=== PATIENT | male | born 1945 | race African-American/Black ===

== ENCOUNTER 2019-08-25 20:34 | Inpatient (IN) ==
[2019-08-25 23:47] LABS: INR 1.86; PROTIME 21.8 Seconds (11.0-16.0)
[2019-08-25 23:48] LABS: PTT 40.5 Seconds (22.3-41.8)
[2019-08-26 00:11] LABS: CALCIUM 9.6 mg/dL (8.8-10.2); MAGNESIUM 2.7 mg/dL (1.5-2.7); PHOSPHORUS 6.2 mg/dL (2.7-4.5)
[2019-08-26] MEDS ORDERED: D50W SYRINGE IV ONE ×3 (00:12→11:17)
[2019-08-26 00:14] LABS: POTASSIUM 6.3 mmol/L (3.5-5.1)
[2019-08-26] MEDS ORDERED: KAYEXALATE PO ONE (00:29)
[2019-08-26] MEDS ORDERED: ALBUTEROL 0.5% INH CONC FOR HYPERKALEMIA INH ONE ×3 (00:29→13:43)
[2019-08-26] MEDS ORDERED: NS 1,000 ML IV SCH (00:45)
[2019-08-26 02:27] LABS: URINE SOURCE CLEAN CATCH
[2019-08-26 02:31] LABS: BLOOD URINE TRACE (NEGATIVE); COLOR YELLOW; GLUCOSE URINE NEGATIVE (NEGATIVE); KETONE URINE TRACE mg/dL (NEGATIVE); LEUKOCYTES URINE NEGATIVE (NEGATIVE); NITRITE URINE NEGATIVE (NEGATIVE); PH URINE 5.5; PROTEIN URINE 50 mg/dL (NEGATIVE); SP GRAVITY URINE 1.021; TURBIDITY URINE HAZY (CLEAR); UROBILINOGEN URINE NORMAL (NORMAL)
[2019-08-26 02:39] LABS: UR EPITHELIAL CELLS <10 /HPF (<10); URINE BACTERIA NEGATIVE /HPF; URINE RBC <10 /HPF (<10); URINE WBC <10 /HPF (<10)
[2019-08-26 02:42] LABS: URINE CASTS NONE SEEN; URINE CRYSTALS NONE SEEN; URINE SMALL ROUND CELLS NONE SEEN; URINE YEAST NONE SEEN
[2019-08-26 02:46] LABS: BILIRUBIN URINE LARGE (NEGATIVE)
--- NOTE | 2019-08-26 05:26 | EKG Report ---
Test Performed on : 08/26/2019 00:46:03 AM Test Reason : weakness,AMS Blood Pressure : / mmHG Vent. Rate : 123 BPM Atrial Rate : 123 BPM P-R Int : 120 ms QRS Dur : 080 ms QT Int : 318 ms P-R-T Axes : 045 043 036 degrees QTc Int : 455 ms Sinus tachycardia. Otherwise normal ECG No previous ECGs available Confirmed by Bernabe Au MD ([id number]) on 08/27/2019 7:29:40 AM
--- NOTE | 2019-08-26 06:01 | HISTORY AND PHYSICAL ---
ONCOLOGIST: Dr. Leann Martinez. DATE AND TIME: 08/25/2019 at 2245. CHIEF COMPLAINT: Abnormal labs and weakness. HISTORY OF PRESENT ILLNESS: Mr. Dailey is a 74-year-old -[place]une[place] male who has a history of hepatocellular carcinoma. He currently is undergoing chemotherapy, reportedly receiving Opdivo every 2 weeks with his last treatment being approximately 1-1/2 weeks ago. His next treatment was supposed to be this August 28. The patient also does have a history of cirrhosis, hepatitis C, diabetes, GERD, hypertension, hyperlipidemia, BPH, depression and anxiety. The patient's states that they did present to Dr. Martinez's office this morning for lab work, and based on his lab work they performed she states that they were told that he had worsening labs related to his liver and his kidneys. Due to his increased weakness, they were recommended by Dr. Martinez to go to the emergency department. The patient's states that they live in [place] and this is why they initially presented to [facility] since this was closer to their home, though since the patient is under the care of Dr. Martinez, he was transferred from [facility] to our hospital for further treatment and management. The patient at this time is alert and oriented to person, time and somewhat to place. He did know that he was in the hospital, though could not tell me what hospital. He could tell me that the person at his bedside was his though could not tell me her middle name. His states that normally he would be able to answer these things very quickly, though the patient did seem slow to answer questions. Other than this, he was not able to provide much information related to past medical history. He was able to tell me that he was not having any chest pain, shortness of breath or pain anywhere else. He denied any pain in his abdomen. He denied any vomiting, though did report that he had some nausea. He denied any diarrhea, hematochezia or melena. His last bowel movement was this morning on August 25. Though he did not report dysuria, he has reported that he has been having to strain when trying to urinate. His also states that his lower extremities from approximately mid calf down have had some swelling over the past day or so. His reports that normally he is not confused and he has not been having this previously. This is new. According to the ER notes at [facility], he was alert and oriented to person, place, and time there upon his arrival. The patient did receive, according to the [facility] ER medication administration, IV Dilaudid. His did mention that he did seem more confused after he was given this. She also reports that over the last day or so that she has noticed that he has had yellowing of his eyes and skin and that today she noticed that his abdomen was a little more swollen than his normal. According to [facility] ER records, his laboratory results revealed likely worsening liver function tests, though I do not have any previous to compare this to. His total bilirubin was 27.2, SGOT was 1281, SGPT was 110 and alkaline phosphatase was 281. Ammonia level was 58, BUN 46, creatinine 2.5 with a GFR of 32. Sodium was 134, potassium was 5.3. Calcium was 10.5, lipase was 16. White blood cell count was 7500, hemoglobin 14.2, hematocrit 40.4 with a platelet count of 643,000. He did receive a 1 L normal saline bolus, 1 mg of Dilaudid IV and 4 mg of Zofran IV. Upon further speaking with the patient's , she did reveal that previously the patient has had Do Not Resuscitate paperwork from what I understand, also they do not have a portable Do Not Resuscitate. The patient's at this time did not express to me that she wanted comfort measures or palliative care. She is wanting to continue with evaluation, treatment and management of his current present problems. She wants him to be a full code. She does want everything done at this time if his condition was to decline, which includes chest compressions, intubation, emergency cardiac medications and defibrillation. I did discuss with her that the patient's condition did seem to be declining. Unfortunately, I told her I did not have any previous laboratory results or diagnostic studies to compare his current results to, though based off what she had described to me, it did seem that he is having worsening liver function and now is having acute renal failure and confusion that is new. The patient's did discuss with her and they both together at this time do want him to remain a full code. They would like to speak with Dr. Martinez and let her evaluate the patient and see what her recommendations are. The patient was placed on the medical floor telemetry. Upon my evaluation, he was resting in the inpatient bed. He was in no acute distress. He was awake or alert, and would close his eyes and drift off to sleep at times, though was easily arousable with verbal and light tactile stimulation. He is alert and oriented to person and time though not place. He could tell me he was in the hospital, but could not tell me what hospital. He does have obvious jaundice noted to bilateral sclera. Upon assessment he did have crackles noted in the left lung base. Abdomen was slightly distended, though was soft and nontender. Bowel sounds are present in all 4 quadrants. The patient did have 1+ pitting edema noted in bilateral lower extremities from mid calf down. We did repeat a BMP and magnesium as well as we added on a PT, PTT, CK and troponin, which were not initially performed at [facility]. It did come back with the patient having a critical potassium level of 6.3. Though his glucose level was low at 41, we have performed a fingerstick blood sugar prior to his blood being drawn, which showed 84, though on the serum glucose, it was 41. Given these assessment and lab result findings, we have ordered a STAT EKG, chest x-ray, an amp of D50 IV, as well as a hyperkalemic albuterol nebulizer treatment, 30 g of Kayexalate p.o. We will start the patient with a gentle 1 L normal saline infusion at 80 mL/h. This will be x1 liter only. The nurse did perform a mini swallowing screen prior to administration of oral medications and the patient did pass this. We will also try to provide him with something to eat as well to help with his hypoglycemia. REVIEW OF SYSTEMS: Unfortunately, a complete review of systems was unable to be performed with the patient due to his current condition and mentation, though he was able to tell me that he was not experiencing any pain. He was reporting some nausea. He denied any chest pain, shortness of breath, abdominal pain, vomiting, or diarrhea. He denies any hematochezia or melena. He was reporting having to strain to urinate but denied any pain or burning with urination. He has been having some swelling in his lower extremities. His did report that his abdomen did seem a little more distended over the past day or so and he has had some worsening weakness and now new onset confusion. She denied him having any known cough, fever, body aches, or chills. PAST MEDICAL HISTORY: 1. Hepatocellular carcinoma. According to a history note from [facility], it was noted that the patient has received previous chemoembolization, left partial hepatectomy at [facility] and has most recently been receiving Opdivo every 2 weeks, with his last treatment being on August 14 and is followed [address]. Martinez. 2. Cirrhosis. 3. Hepatitis C. 4. Diabetes mellitus. 5. Gastroesophageal reflux disease. 6. Hypercholesterolemia. 7. Hypertension. 8. Benign prostatic hypertrophy. 9. Seasonal allergies. 10. Depression. 11. Anxiety. PAST SURGICAL HISTORY: 1. Liver surgery which I believe would be his previously mentioned left partial hepatectomy at [facility] in March 2018. 2. Left foot surgery secondary to an injury from a transcripter. SOCIAL HISTORY: The patient is a former smoker. He did quit smoking in 2012. There is no reported previous alcohol or illicit drug use. The patient does have a history of [employer] [place] exposure in [facility]. FAMILY HISTORY: Positive for his mother having history of thyroid disease and ovarian cancer. His father had a history of prostate cancer. ALLERGIES: Patient has no known allergies. HOME MEDICATIONS: The patient's reports that he is supposed to be taking the following medications which include: 1. Minocycline 100 mg capsule p.o. daily. She reports that he has taken this since his left foot surgery. 2. Loratadine 10 mg p.o. daily. 3. Pravastatin 40 mg p.o. daily. 4. Zofran ODT 4 mg tablet p.o. p.r.n. as needed for nausea. 5. MS Contin 15 mg tablet extended release, though the dosing interval is not noted. 6. [place] 10 mg tablet p.o. as needed, though the dosing interval is not noted as well. 7. Omeprazole 20 mg capsule p.o. daily. The patient's reports at this time that he has not been taking these medicines regularly, that he has only been recently taking his MS Contin and [place], though most recently he is not even taking these pain medications. He just receiving his chemotherapy. DIAGNOSTIC DATA: The following labs were obtained at [facility] which include white blood cell count is 7500, hemoglobin 14.2, hematocrit 40.4, platelet count is 643,000. SGOT was 1281, SGPT was 110, alkaline phosphatase is 281, total bilirubin is 27.2, albumin 3.5, ammonia level was 58, lipase 16. These labs were the most recent chemistry labs that were performed here at our facility, which included a sodium 137, potassium 6.3, chloride 100, serum bicarb is 16, anion gap is 21, BUN is 48, creatinine 3, GFR is 25, glucose was 41 though this has since been treated and has improved with the most recent fingerstick blood sugar being 90. Calcium 96, phosphorus 6.2, magnesium 2.7. CK 80, troponin T high sensitivity was 23. Plasma lactate 3.8. PT 21.8, INR 1.86, PTT is 40.5. Urinalysis was obtained via clean catch, was positive for protein, trace ketones, trace blood, large bilirubin and was negative for glucose, nitrites, leukocytes, white blood cells, or bacteria. I am awaiting EKG at this time. Chest x-ray was performed and did not show any acute abnormalities, though we are awaiting the radiologist over-read. PHYSICAL EXAMINATION: VITAL SIGNS: Temperature 98.3 degrees, heart rate 117, respirations 19, blood pressure 139/87 with a MAP of 100, oxygen saturation was 96% on room air. GENERAL: Mr. Dailey is a 74-year-old ill-appearing -[place] male. He was resting in the inpatient bed. He was in no acute distress. He was awake, was alert at times though would close his eyes and drift off to sleep, though was easily arousable with verbal and light tactile stimulation. HEENT: Head is atraumatic, normocephalic. Pupils are equal, round, reactive to light, were 3 mm bilaterally. There was jaundice noted to bilateral sclera. Oral mucosa was slightly dry. Oropharynx was clear though this was difficult to auscultate as the patient would not open his mouth all the way. NECK: Supple. Trachea midline. CARDIOVASCULAR: Patient has S1-S2 present. No murmurs, gallops, rubs appreciated with a tachycardic rate that is regular. PULMONARY: Patient has symmetrical chest expansion bilaterally. Lung sounds were clear in all drum[place] except he has some slight crackles noted in left lower lung base. ABDOMEN: Soft, nontender, though did seem slightly distended. Bowel sounds are present in all 4 quadrants and were normoactive. EXTREMITIES: No cyanosis noted, though the patient did have 1+ pitting edema noted in bilateral lower extremities from mid calf down. Radial pulses were 2+ bilaterally. Pedal pulses were 1+ bilaterally. INTEGUMENTARY: The patient's skin does appear to be jaundiced, though is dry and intact. NEUROLOGICAL: Patient is alert and oriented to person and time though not place. He could tell me he was in the hospital, but could not tell me which hospital. He was able to answer simple questions and follow simple commands. He was able to move all extremities though does have generalized weakness noted bilaterally and has weak hand grasps noted, though he denied any numbness or tingling. ASSESSMENT AND PLAN: 1. Hepatocellular carcinoma. 2. Cirrhosis. 3. History of hepatitis C. For numbers 1, 2, and 3, we will repeat the patient's liver function test and ammonia level in the morning. We will place the patient on continuous cardiac telemetry, q.4 hours vital signs and neurological checks and fingerstick blood sugars. We will monitor him closely throughout the night. We have placed a consult with Dr. Martinez, his oncologist, and will await her evaluation and further recommendations for treatment and management. 4. Acute kidney injury. This could be secondary to possible hepatorenal syndrome, though the patient does seem to be possibly slightly dehydrated as well. We will provide some very gentle intravenous hydration with normal saline at 80 mL/h x1 liter only. We have placed a consult with Dr. Alberts. We will await his evaluation and further recommendations for management and treatment. We have treated his hyperkalemia with nebulized albuterol and Kayexalate. We did not provide insulin at the time due to the patient being hypoglycemic. His glucose level was 41, though we have treated this and upon recheck it has improved. We will recheck potassium approximately 2 hours after this treatment is received. We will continue to monitor this closely. He is on continuous cardiac telemetry. 5. Encephalopathy. This could be multifactorial. This is likely related to hepatic encephalopathy, though the patient did receive Dilaudid at [facility] and his stated that prior to this he was oriented, though he seemed more disoriented after receiving this medicine. The patient has had some problems with hypoglycemia as well. We will recheck an ammonia level in the morning. We will do frequent fingerstick blood sugars. We will continue to monitor closely. He is receiving frequent neuro checks also. 6. Hypoglycemia. As previously mentioned, the patient did receive D50 IV. We are going to provide him with something to eat. He did pass a mini swallowing screen. We will continue to monitor this closely. 7. Resuscitation status. I did discuss with the patient's and at this time she does want him to remain a full code. She does want chest compressions, intubation, emergency cardiac medicines and defibrillation. She did state that she wanted to speak with Dr. Martinez in the morning before making any further decisions about this. An order for a full code resuscitation level has been placed in the computer. 8. Venous thromboembolism (VTE) prophylaxis will be provided with sequential compression devices. We are going to recheck a potassium level later on this morning to recheck improvement after he received treatment for his hyperkalemia. We will recheck a CBC, CMP, magnesium, phosphorus, CK profile, troponin, and a ammonia level later on this morning. We did obtain blood cultures as well. The patient does not have any leukocytosis. He has not had any fever, body aches, or chills and is not reporting any pain at this time. Further orders and recommendations pending hospital course, diagnostic studies, and physician evaluation. Dictated by SHANKAR Prieto for Taran Ying MD I have performed a face to face diagnostic evaluation. Labs/xrays- reviewed. Exam- Chest- clear, CV-regular, Abd- soft. A/P Hepatocelluar carcinoma, Cirrhosis- Admit, Oncology consult, supportive care. Poor prognosis. Dr. Ying cc: Taran Ying MD [facility]
[2019-08-26] MEDS ORDERED: PROTONIX 80 MG in NS 80 ML IV ONE (06:10)
[2019-08-26] MEDS ORDERED: PROTONIX 80 MG in NS 80 ML IV SCH (06:15)
[2019-08-26] MEDS ORDERED: ZOFRAN IV PRN (06:27)
[2019-08-26 07:02] LABS: HEMATOCRIT 37.5 % (42.0-52.0); HEMOGLOBIN 13.3 g/dL (14.0-18.0); MCH 28.8 PG (27-31); MCHC 35.5 g/dL (33-37); MCV 81.2 FL (81-99); PLT 601 X1000 (130-400); RBC 4.62 XMIL (4.7-6.1); WBC 12.85 X1000 (4.8-10.8)
[2019-08-26 07:03] LABS: BASO# 0.13 X1000 (0.0-0.2); EOS# 0.01 X1000 (0.0-0.7); EOS% 0.1 % (0.0-10.0); IMM GRAN# 0.11 X1000 (0.0-0.04); IMM GRAN% 0.9 % (0.0-0.5); LYMPH# 1.23 X1000 (1.2-3.4); LYMPH% 9.6 % (20.5-51.1); MONO# 2.22 X1000 (0.11-0.59); MONO% 17.3 % (1.7-9.3); MPV 10.5 FL (7.4-10.4); NEUT# 9.15 X1000 (1.4-6.5); NEUT% 71.1 % (42.2-75.2)
[2019-08-26 07:07] LABS: INR 2.13; PROTIME 24.3 Seconds (11.0-16.0)
--- NOTE | 2019-08-26 07:21 | Diag Imaging Result Doc PS360 ---
CHEST-PORTABLE - 08/25/2019 INDICATION: crackles LLL COMPARISON: None FINDINGS: The lungs are normally expanded and clear. Heart size and mediastinal contours are normal. No pneumothorax or pleural effusion. IMPRESSION: Negative exam. Electronically signed by Jayy Motta 08/26/2019 7:18 AM
[2019-08-26 07:35] LABS: ALB/GLOB RATIO 0.9; CALCIUM 10.2 mg/dL (8.8-10.2); CREATININE 3.5 mg/dL (0.7-1.2); TOTAL PROTEIN 6.4 g/dL (6.3-8.3)
[2019-08-26 07:36] LABS: POTASSIUM 5.7 mmol/L (3.5-5.1); TOTAL BILIRUBIN 27.59 mg/dL (0.20-1.00)
[2019-08-26] MEDS ORDERED: HUMULIN R IV ONE (09:09)
[2019-08-26] MEDS ORDERED: SODIUM BICARBONATE 8.4% 150 MEQ in D5W 1,000 ML IV SCH ×2 (09:15→11:56)
--- NOTE | 2019-08-26 09:46 | NEPHROLOGY CONSULTATION ---
DATE: 08/26/2019 REASON FOR ADMISSION: Abnormal labs associated with altered mental status and weakness. REASON FOR CONSULTATION: Acute kidney injury associated with hyperkalemia. CONSULTING PHYSICIAN: Dr. Taran Ying per SHANKAR Prieto. HISTORY OF PRESENT ILLNESS: Mr. Dailey he is a 74-year-old male, who has previously been followed by the [place] for many, many years. The patient has hepatitis C with cirrhosis that had been under the care of [facility]. He has also had a chemoembolization with a left partial hepatectomy at [facility]. Since July of 2016, he has been followed by Dr. Martinez. He has been on Opdivo with frequent follow-ups to Dr. Martinez's office. Yesterday he presented to the office. He had altered mental status. They had checked labs. His potassium was 6.3, BUN was elevated with an elevated creatinine. Dr. Martinez's office had directed his to take him to the emergency room for evaluation. They live in [place]. She had driven home and taken him to [facility]. They treated him for hyperkalemia with D 50 insulin and albuterol, then gave him a liter of normal saline fluid bolus and transferred him to [facility] to be under the care of Dr. Martinez. Upon arrival, the patient was admitted directly to the floor. He remains with altered mental status. His is at his bedside. At this time he is lethargic, though he denies pain. He had recently just had projectile emesis of coffee-ground material to the floor and wall in his room. He has been cleaned up by the nurses. He had a swallow evaluation during the night and was able to swallow correctly according to the RN. It was noted also that his ammonia level was up to 58. His liver enzymes were elevated with a bilirubin of 27.2, SGOT 1281, SGPT 110, alkaline phosphatase of 281. He is currently receiving 1 more L of fluid normal saline bolus, and then is to be placed on saline lock. He has no lower extremity swelling. No fever or chills according to the . He is unable to give a review of systems. PAST MEDICAL HISTORY: Hepatocellular carcinoma. The patient has had this greater than 6 years for treatment with chemotherapy. He has had a previous chemoembolization with a left partial hepatectomy at [facility] in the past. He has cirrhosis with hepatitis C for greater than 10 years, also under treatment by [facility]. Diabetes mellitus type 2. This is currently diet controlled according to the . He has hypertension that is currently being controlled medically. The patient has gastroesophageal reflux disease, hypercholesterolemia, benign prostatic hypertrophy, depression, anxiety, and seasonal allergies. is unaware of any kidney disorders. PAST SURGICAL HISTORY: As mentioned with a partial hepatectomy at [facility] in March of 2018. He has had a chemoembolization, left foot surgery secondary to an injury from a tree trimmer. SOCIAL HISTORY: He is . He lives with his spouse. Previous smoker; stopped smoking in 2012. Previous alcohol use; no current alcohol or illicit drug use. 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 FAMILY HISTORY: He is positive mother having history of thyroid disease and ovarian cancer; father with a history of prostate cancer. The is unaware of anything else. ALLERGIES: Listed as no known drug allergies. HOME MEDICATIONS: Have yet to be reconciled. So far, they have listed minocycline, Loratadine, pravastatin, Zofran, MS Contin, [place], omeprazole, and Opdivo which he has been recorded receiving every 2 weeks; next dose is next week. LABS: Current labs in the hospital have been listed as sodium of 137, potassium is 5.7, chloride 96, CO2 8. BUN 51, creatinine 3.5, glucose 8.1, anion gap of 33. His calcium is 10.2, phosphorus 7, albumin is 3, magnesium of 3. White count 12.85, hemoglobin is 13.3, hematocrit 37.5, with a platelet count of 601. Plasma lactate that had been completed previously was up to 3.8. His ammonia level was 58. Elevated LFTs. X-RAYS: Chest x-ray was negative. Chest x-ray showed sinus tachycardia with no acute disease. PHYSICAL EXAMINATION: General: This is a 74-year-old male. He is resting quietly in bed. He is lethargic. He does open eyes to verbal stimuli, though does not interact, falls back to sleep easily. HEENT: Normocephalic, atraumatic. Conjunctiva has sclera. He is jaundiced. Skin: Warm and dry. HEENT: Normocephalic. Neck: Supple. Trachea midline. No evidence of JVD in the upright position. Cardiovascular: He is regular rate and rhythm. He appears to have a soft gallop. Lungs: Clear to auscultation bilaterally. Equal excursion. He is on room air. Abdomen: Distended. Hypoactive bowel sounds. No tenderness on palpation. Genitourinary: Not inspected. Minimal urine out at this point. The patient has no Sherman catheter present. Extremities: Have no edema. No clubbing or cyanosis. Neurological: As mentioned above. ASSESSMENT AND PLAN: 1. Acute kidney injury on unknown chronic kidney disease. We will attempt to get labs from Dr. Martinez's office to evaluate the patient's creatinine elevation. We will check urine electrolytes. I have ordered a renal ultrasound to be performed at bedside. He is currently receiving a second liter of normal saline. We will evaluate if he needs anything further upon these results. 2. Electrolytes and acid-base balance. Patient has been treated medically for his hyperkalemia. Potassium of 5.7. We will evaluate if he needs further D 50 insulin and albuterol if not ordered. 3. Anemia. Patient's hemoglobin is stable at 13.3. 4. Elevated liver function and tests. The patient has known hepatitis C, hepatocellular carcinoma. This is currently being followed by Dr. Martinez, and we will defer to the primary care team. 5. Nausea, vomiting associated with coffee-ground emesis. The patient has been ordered Protonix 80 mg to be given as soon as possible. This is currently infusing. They will continue 40 mg every 12 hours after this is over. He has been receiving Zofran for assist. I would like to thank you for allowing us to follow with this patient. Dictated by SHANKAR Lane for Mayank Alberts MD Face to face encounter, data reviewed, discussed with Miguel Angel Joe on 08/26/19. I agree with the above assessment and plan of care. cc: SHANKAR Lane MD [facility]
--- NOTE | 2019-08-26 10:52 | Diag Imaging Result Doc PS360 ---
US RENAL 2 (RETROPER) COMPLETE - 08/26/2019 INDICATION: decreased renal function TECHNIQUE: COMPARISON: None FINDINGS: There is a small amount of ascites. There is no hydronephrosis. Renal sizes are grossly normal. The right kidney measures 10.5 x 3.9 x 4.8 cm. The left kidney measures 9.6 x 5 x 5.2 cm. There are a couple of left renal cysts measuring up to 3 cm. The urinary bladder is normal. IMPRESSION: Ascites. No acute abnormality of the urinary tract. Electronically signed by Jayy Motta 08/26/2019 10:50 AM
[2019-08-26] MEDS ORDERED: MORPHINE IV PRN (11:04)
[2019-08-26] MEDS ORDERED: DULCOLAX PR SCH (11:15)
[2019-08-26] MEDS ORDERED: ZOSYN 2.25 GM in NS 50 ML IV SCH (11:15)
[2019-08-26] MEDS ORDERED: LACTULOSE PO SCH (11:15)
--- NOTE | 2019-08-26 12:11 | PROGRESS NOTE ---
DATE: 08/26/2019 INTERVAL HISTORY: Mr. Dailey was admitted for abnormal labs. SUBJECTIVE: When I evaluated the patient, his is at bedside. The patient is tossing and turning, trying to come out of bed, appears confused. He could not engage in the conversation meaningfully. He appears in distress. VITAL SIGNS: Temperature 97.5 degrees, pulse 123, respiratory rate 24, blood pressure 140/76, he is saturating 100% on room air. PHYSICAL EXAMINATION: General: He has marked scleral icterus. Dry oral cavity. Respiratory: Air entry bilaterally equal. No wheeze or crackles. He does have tachycardia. Cardiovascular: S1, S2 normal. No murmur or gallop. Abdomen: Soft, distended. He is complaining of lower abdominal pain. There is no rebound or rigidity. There is some right quadrant hepatomegaly and tenderness. No bowel sounds. Mild lower extremity edema. He is moving all extremities spontaneously. LABORATORY DATA: Suggestive of leukocytosis with WBC 73903, hemoglobin 13.3, platelets 601,000. He does have elevated INR with 2.1 of INR. He does have hyperkalemia, acute kidney injury, elevated total bilirubin, AST, ALT and alkaline phosphatase. He also has lactic acidosis. Blood cultures are in lab. ASSESSMENT AND PLAN: 1. Acute encephalopathy likely hepatic encephalopathy. Start patient on lactulose. He is able to take by mouth and I will add rifaximin in future if he tolerates. I will also keep him on bisacodyl suppository. 2. Transaminitis and worsening jaundice. His baseline labs are not known. Awaiting records from oncology office. He has history of hepatic chronic hepatitis C virus, hepatic cirrhosis and hepatocellular carcinoma. Start patient on intravenous Zosyn for suspected acute cholangitis. Follow up CT scan of the abdomen and pelvis. GI team on board. 3. Acute kidney injury. Baseline kidney function is not known. Prerenal azotemia is a possibility. Hepatorenal syndrome is also a possibility. I will follow up with urine electrolytes. Insert Sherman catheter for close input and output monitoring. Start patient on D5 bicarbonate drip. I may consider starting him on octreotide, norepinephrine and albumin in the future depending on his electrolytes. His hyperkalemia has improved. He got D5 insulin by Nephrology Team. Monitor BMP. 4. Lactic acidosis, likely in the setting of sepsis. Potential source being GI for example acute cholangitis versus others. Continue to trend lactate. Continue intravenous fluids. 5. Hepatocellular carcinoma. He in the past had received partial hepatic lobectomy, chemoembolization, and currently he is on Opdivo. I will start him on intravenous morphine. Appreciate oncology recommendation. 6. Disposition. The patient appears significantly ill right now and is critical considering tachycardia, hemodynamic instability, worsening mental status, and 0 urine output. I will transfer patient to ICU. I will get a CT scan head, CT scan of the abdomen and pelvis. Start him on broad-spectrum antibiotics. I communicated this plan to the nurse. All of the patient's 's questions, concerns have been addressed . cc: Sin Conti MD
--- NOTE | 2019-08-26 12:19 | PROGRESS NOTE ---
DATE: 08/26/2019 ADDENDUM: I sat down with the patient's . I explained to her about the Mr. Dailey's clinical condition. I explained to her that he has an extremely rapid heart rate, he has a failing liver and failing kidneys. I explained to her that I was worried about infection in the abdomen. I explained to her that he is extremely sick and I was worried about his survival. She understood it. I asked her if the patient or herself had thought about any goals of care and she verbalized that both the patient and his mutually had decided that Mr. Dailey would not want any resuscitation which would include chest compressions, shocks, or intubating him or hooking up with the ventilator. I explained to Ms. Dailey that Mr. Dailey's clinical condition is so critical that he may during this hospital admission and she understood it. I explained to her about the treatment options and transferring him to ICU. I allowed her sufficient time to ask any questions. I will also consult palliative care. His code status is Do Not Resuscitate level 1. Plan is to transfer patient to ICU for further care. cc: Sin Conti MD
--- NOTE | 2019-08-26 12:23 | Diag Imaging Result Doc PS360 ---
FLAT/UPRIGHT ABD/1 VIEW CHEST - 08/26/2019 INDICATION: R/o SBO TECHNIQUE: COMPARISON: 08/25/2019 FINDINGS: There is some increasing hazy atelectasis or edema in the lung bases bilaterally. Heart size is top normal. No pneumothorax or pleural effusion. Portable technique was used. Detail of the abdomen is extremely poor. No obvious bowel obstruction or large free air. IMPRESSION: 1. Increasing nonspecific hazy infiltrates or edema in the lung bases. 2. No definite acute process in the abdomen. Electronically signed by Jayy Motta 08/26/2019 12:20 PM
[2019-08-26] MEDS ORDERED: ATIVAN IV PRN ×2 (12:46→14:12)
[2019-08-26] MEDS ORDERED: VITAMIN K SUBQ ONE (13:30)
[2019-08-26] MEDS ORDERED: DILAUDID IV PRN ×3 (13:42→14:18)
[2019-08-26 13:54] VITALS: BP 89/77
--- NOTE | 2019-08-26 15:32 | Diag Imaging Result Doc PS360 ---
US ABDOMEN-COMPLETE - 08/26/2019 INDICATION: RUQ Pain. Eval for CBD dilation/cholangitis COMPARISON: None FINDINGS: The exam is extremely challenging due to patient inability to cooperate relating to severely abnormal mental status. The liver is diffusely abnormal. The right kidney is grossly normal. The pancreas, spleen, left kidney, aorta, IVC, main portal vein are obscured. Common bile duct measures 5 mm. IMPRESSION: As above. Electronically signed by Jayy Motta 08/26/2019 3:30 PM
[2019-08-26] MEDS ORDERED: PROTONIX IV SCH (18:00)
--- NOTE | 2019-08-26 20:22 | GASTROENTEROLOGY CONSULTATION ---
DATE: 08/26/2019 REASON FOR CONSULTATION: Cirrhosis of the liver, questionable GI bleed, history of liver cancer and history of hepatitis C. HISTORY OF PRESENT ILLNESS: This is a 74-year-old male, he is a patient of Dr. Leann Martinez following for management of liver cancer with chemotherapy. Patient is unable to assist with the review of systems. His is at the bedside who helped with some questions. She states he was diagnosed with liver cancer approximately 5 years ago. He has been following now with Dr. Leann Martinez. She also states he has a history of hepatitis C and was treated approximately 11 years ago. She states he did injections for treatment so most likely he did interferon injections and ribavirin. I do not know the details of his hepatitis C status. Apparently the patient had change in mental status, increased weakness, confusion. They had gone in to see Dr. Martinez and under workup was recommended to go to the emergency room, because they live in [place] they went to [place] ER but was then transferred here to [facility] for further evaluation. Patient has been found to have acute kidney injury. Respiratory status is poor. He has O2 nonrebreather in place. He has current orders to be transferred to the intensive care unit. At the time of my visit patient was restless in the bed. He did open his eyes but did not speak. The information is obtained from the chart and his . PAST MEDICAL HISTORY: Hepatic cellular carcinoma. Apparently he had been treated at [facility] and had partial hepatectomy and has been following with Dr. Leann Martinez for chemotherapy management. Hepatitis C treated approximately 11 years ago, diabetes, GERD, hypertension, hyperlipidemia, BPH, depression, anxiety, cirrhosis of the liver, hypertension. PAST SURGICAL HISTORY: Liver surgery, partial hepatectomy at [facility] in March 2018, left foot surgery. ALLERGIES: No known drug allergies. HOME MEDICATIONS: None listed. SOCIAL HISTORY: Former smoker. No reported alcohol use. He had exposure to Agent [place] in [place]. FAMILY HISTORY: Mother had thyroid disease and ovarian cancer. Father had prostate cancer. REVIEW OF SYSTEMS: Per history of present illness. Information is obtained from the patient's and the chart. Patient is unable to help with review of systems.Vital Signs: Temperature 98.0, pulse 109, respirations 19, blood pressure 89/77. General: Patient did open his eyes. He is restless in bed. He has O2 by mask in place. HEENT: Normocephalic, atraumatic. Pupils equal, round, reactive to light. Cardiovascular: Regular rate and rhythm, tachycardic. Respiratory: Lung sounds essentially clear. Abdomen: Distended, soft. Extremities: With some mild lower extremity edema noted. Neurologic: Patient opens his eyes but did not speak at the time of my visit. He was restless in the bed. DIAGNOSTIC RESULTS: Laboratory. Hematology. WBC 12.85, hemoglobin 13.3, hematocrit 37.5, platelet 601,000. Coagulation. Pro time 24.3, INR 2.13, PTT 40.5. Chemistry. Sodium 137, potassium 4.9, he had an initial potassium of 6.3 on admission, chloride 96, CO2 8, BUN 51, creatinine 3.5, glucose 81, phosphorus 7.0, magnesium 3.0, total bilirubin 27.59, AST 1405, ALT 126, alkaline phosphatase 250, ammonia 42, plasma lactate 17.7. IMAGING: Abdominal x-ray showed increasing hazy infiltrates or edema in the lung bases. No acute process of the abdomen. Abdominal ultrasound showed challenging study. The liver is abnormal, right kidney grossly normal, common bile duct 5 mm. Renal ultrasound ascites but no acute abnormality of the urinary tract, no hydronephrosis. ASSESSMENT AND PLAN: 1. Acute kidney injury. Nephrology has seen the patient. 2. Hepatocellular carcinoma. Continue recommendations per Dr. Martinez. 3. Encephalopathy. Continue current management. 4. Elevated liver enzymes. Would add a GGT and LDH to his labs in the morning. 5. History of hepatitis C with apparent treatment over 10 years ago. 6. I believe patient will be transferred to the intensive care unit for closer monitoring. We will get GGT and LDH lab tomorrow. Recommend further management per hospitalist, nephrology and oncology. I have discussed this case with Dr. Doherty. Further plans will be made as needed. Thank you for this consultation. Dictated by SHANKAR Garcia for Phu Doherty MD cc: SHANKAR Sin MD [facility]
--- NOTE | 2019-08-26 20:24 | HEMO/ONC CONSULTATION ---
DATE: 08/26/2019 CONSULTATION REQUESTED BY: Hospitalist service. REASON FOR CONSULTATION: Metastatic hepatocellular carcinoma, patient known. HISTORY OF PRESENT ILLNESS: Mr. Dailey is a 74-year-old male who is known to us, as we are currently treating him for recurrent refractory hepatocellular carcinoma. The patient was actually in our office on 08/25/2019 to receive IV fluids after calling reporting that he was fatigued and was having episodes of vomiting. He was also having some increased pain. While he was at our office, we went ahead and did lab work, and he was found to be in acute renal failure with a creatinine of 2.8, as well as acute liver failure with his bilirubin doubling to 26.5 with an AST that had elevated to 1149. The patient also had some confusion. We advised him to go to the emergency room for further evaluation and treatment. He was originally at [facility] and has now been transferred here to [facility]. He was actually found to be hyperkalemic, and this has been treated. He was found to have a creatinine of 3.0 on admission that is all the way up to 3.5. There are questions as to whether or not he has cholangitis or some other type of infection. He is being worked up for infection and is being covered with antibiotics. He. He appears to have hepatorenal syndrome, which could also just be related to his advanced disease. PAST MEDICAL HISTORY: 1. Recurrent refractory hepatocellular carcinoma. He is status post Lenvima but had progression and is now on Opdivo. He has received 2 doses, with his last dose being on 08/14/2019. He is due for repeat dosing this Saturday on 08/28/2019. Treatment currently on hold. 2. Hepatitis C. 3. Cirrhosis. 4. Diabetes. 5. GERD. 6. Anxiety/depression. 7. BPH. 8. Hypertension. PAST SURGICAL HISTORY: He has had a left partial hepatectomy at [facility] back in March 2018. He has also had a left surgery secondary to a lawnmower injury. SOCIAL HISTORY: He is a former smoker. He quit smoking back in 2012. He has no prior history of alcohol or illicit drug use. He has a history of Agent [place] exposure in [place]. He is and has a supportive family. FAMILY HISTORY: Positive for thyroid disease and ovarian cancer as well as prostate cancer. REVIEW OF SYSTEMS: Twelve-point review of systems has been completed and is negative except for as expressed in HPI. PHYSICAL EXAMINATION: Vital Signs: Temperature 97.5 degrees, heart rate 109, respirations 33, blood pressure 142/76, O2 saturation 100% on room air. General: This is an male in his hospital bed. He is very agitated and disoriented. His is at bedside trying to calm him down. He has a nonrebreather mask in place. He is unable to answer questions, and information is taken both from his chart as well as from his . HEENT: Head normocephalic, atraumatic. Eyes: Sclerae are very icteric, almost neon green. Ears, nose, throat, neck, and mouth: Oral mucosa appears to be dry. He is not responding to questions, though there is no reason to think he cannot hear. Cardiovascular: Tachycardia noted. Respiratory: Increased respiratory effort. He is tachypneic. He has some crackles noted. Gastrointestinal: Abdomen is distended. Normoactive bowel sounds at this time. Musculoskeletal: No obvious bony abnormalities. Skin: No rashes. Neurologic: Again, the patient is not oriented. He is agitated and disoriented. LAB STUDIES: White blood cells today are 12.85. They were 8.6 in our office yesterday. Hemoglobin is 13.3. Platelet count is up to 601. This is down some, as his platelet count was 628,000 in our office yesterday. His PT/INR is 24.3 and 2.13 respectively. Patient's sodium is 137. His potassium is 4.9, chloride 96. CO2 is 8, BUN 51. Creatinine is up to 3.5 today. Glucose is 81, phosphorus is 7.0, magnesium 3.0. Bilirubin is 27.59, AST 1405, ALT 126, and alkaline phosphatase is 250. He had a renal ultrasound which showed some ascites, but no other acute findings. ASSESSMENT AND PLAN: 1. End-stage hepatocellular carcinoma. The patient has rather advanced disease. We have given him Opdivo 2 cycles previously. He is due for a repeat cycle this Saturday. Treatment is on hold due to the patient's acute issues. 2. We suspect he has end-stage liver failure secondary to number 1. They are trying to rule out, though, underlying infection. We also agree with an ultrasound of the abdomen. We are most interested in evaluating for a possible portal venous thrombus. Will follow up on the ultrasound, which is already ordered, once it results. 3. Acute renal failure. The patient's baseline creatinine is between 1.2 and 1.5. I did go back and look at labs that we have all way back to 2014, and his creatinine has never been above 1.5. Nephrology is on board, and will continue management per their recommendations. 4. Coffee-grounds emesis. We agree with gastroenterology consultation. Follow up on their recommendations. 5. Elevated INR. This is secondary to liver failure. We will go ahead and give him vitamin K 10 mg subcutaneously for 3 days. First dose will be done as soon as possible. DISPOSITION: The patient is quite ill. He has a poor prognosis. We have discussed with them code status, and he is now DO NOT RESUSCITATE level 1. We have had a charli conversation with the family about his prognosis and that he is likely not to survive this hospitalization. We will continue to follow along while he is here. Continue all supportive care. Follow up on all infectious workup in case that is the cause, and potentially reversible; however, we have made clear to the family that we think likely his situation is grim. He Thank you for consulting us on Mr. Dailey. We are following closely. Dictated by LAMAR Burk for Leann Martinez MD cc: Leann Martinez MD I have seen and examined the patient and the above note reflects my history, physical exam, assessment and plan. Leann Martinez MD [facility]ITAL[facility]ites[facility]
--- NOTE | 2019-08-26 20:55 | DISCHARGE SUMMARY ---
ADMISSION DATE: 08/25/2019 DISCHARGE DATE: 08/26/2019 DATE OF : 08/26/2019 TIME OF : 3:15 p.m. CAUSE OF : 1. Hepatocellular carcinoma. 2. Hepatic encephalopathy. 3. Hepatorenal syndrome. 4. Acute decompensated hepatic cirrhosis. HOSPITAL COURSE SUMMARY: Mr. Dailey is 74 years old man who presented on 08/26/2019 with chief complaints of abnormal lab and weakness. He had a diagnosis of hepatocellular carcinoma and was being followed up by oncology team outpatient. He has been feeling extremely weak and had gone to the emergency room in [place] where he was found to have abnormal blood tests including abnormal liver function test, abnormal kidney functions. He was sent over to [facility]. In the [facility] on arrival he was afebrile. However, he was tachycardic with heart rate of 110 per minute and he was normotensive though blood test had detected he had significant leukocytosis with WBC of 12,000. He also had elevated INR 2.1. He had hyperkalemia with potassium of 6.3 on presentation and acute kidney injury with creatinine of 3.5 his baseline being close to 1.5. He also had acute hepatic failure with total bilirubin of 27 and lactic acidosis. On my evaluation he was diagnosed with suspected sepsis from intraabdominal source and he was started on intravenous antibiotics, intravenous bicarbonate drip, lactulose. Nephrology and GI team was consulted. During patient encounter, patient had become significantly agitated, confused, anxious and he was in significant pain so he was started on intravenous hydromorphone, intravenous lorazepam, intravenous morphine. He had a rapid decline in his course. I had kept the family members including and daughter informed about his critical condition. I explained to them about his acute hepatic failure, decompensated liver cirrhosis, hepatocellular carcinoma, suspected sepsis and kidney failure and poor prognosis. The patient's code status was decided to be do not resuscitate level 1. Eventually, he succumbed and at about 1515 on 08/26/2019. The patient's and daughter were at bedside. I went to the bedside. The patient did not have any corneal or pupillary reflex. Pupils were 1 cm dilated, nonreactive to torch light. He did not have spontaneous respiration. He did not have any breathing. He did not have any heart sound. He did not have pulse. On bedside telemetry he had identifiable pulseless electrical activity so he was pronounced. I expressed my empathy to the family members and offered them any help. They were appreciated of number of our efforts. cc: Sin Conti MD MTDD
[2019-08-27] MEDS ORDERED: PROTONIX IV SCH (07:00)
== END 2019-08-26 15:15 | disposition expired | DRG 871 ==
LOC: SUPCPDRO → ED 20:34 → 3N 21:35 → SUATTDRO 21:35
PROVIDERS: ATTEND Internal Medicine